=== PATIENT | male | born 1990 ===

== ENCOUNTER 2021-09-08 20:24 | Emergency (ER) | payer SELFPAY ==
[2021-09-08 20:42] VITALS: BP 135/77
--- NOTE | 2021-09-10 18:51 | Electrocardiograph Report ---
[facility] Test Date: 2021-09-08 Test Time: 20:30:06 Pat Name: BREEZY ALFONSO Department: Room: Gender: M [employer] Product Consultant: LILIA : 1990 Requested By: SOHAN WAY Order Number: [id number] Reading MD: Yisel Pritchett Measurements Intervals [place] Rate: 72 P: 54 NE: 300 QRS: 45 QRSD: 81 T: 40 QT: 390 QTc: 427 Interpretive Statements Sinus rhythm Prolonged NE interval Anterior infarct, old No previous ECG available for comparison Electronically Signed On 09-10-2021 18:51:06 EDT by Yisel Pritchett
== END 2021-09-09 04:15 | disposition left against medical advice (07) ==
LOC: ED 20:24
DX: R10.9 Unspecified abdominal pain (principal); Z53.21 Procedure and treatment not carried out due to patient leaving prior to being seen by health care provider
CPT/HCPCS: 93005